=== PATIENT | male | born 1975 ===

== ENCOUNTER 2018-05-23 13:25 | Emergency (ER) | payer SELFPAY ==
[2018-05-23 14:06] VITALS: BP 127/79; PULSE 80; TEMP 99.4; O2SAT 98
--- NOTE | 2018-05-23 15:03 | C.PDOC ---
History Of Present Illness Pt c/o rash on b/l forearms. He states that he was in contact with poison [place]. Time Seen by Provider: 05/23/18 14:44 Chief Complaint (Nursing): Abnormal Skin Integrity History Per: Patient, Family Onset/Duration Of Symptoms: Days (4) Current Symptoms Are (Timing): Still Present Location Of Injury: Right: Forearm, Left: Forearm Quality Of Symptoms: Itching Severity: Moderate Additional History Per: Prior Records Past Medical History Reviewed: Historical Data, Nursing Documentation, Vital Signs Vital Signs: Last Vital Signs Temp 99.4 F 05/23/18 14:03 Pulse 80 05/23/18 14:03 Resp 16 05/23/18 14:03 BP 127/79 05/23/18 14:03 Pulse Ox 98 05/23/18 14:03 - Medical History PMH: No Chronic Diseases Family History: States: Unknown Family Hx - Social History Hx Alcohol Use: No Hx Substance Use: No - Immunization History Hx Tetanus Toxoid Vaccination: No Hx Influenza Vaccination: No Hx Pneumococcal Vaccination: No Review Of Systems Except As Marked, All Systems Reviewed And Found Negative. Constitutional: Negative for: Fever, Weakness Eyes: Negative for: Conjunctivae Inflammation, Eyelid Inflammation, Redness ENT: Negative for: Mouth Pain, Mouth Swelling, Throat Pain, Throat Swelling Respiratory: Negative for: Shortness of Breath Skin: Positive for: Rash Neurological: Negative for: Weakness, Numbness Physical Exam - Physical Exam Appears: Non-toxic, No Acute Distress Skin: Warm, Dry, Rash (on b/l forearms consistent with poison [place].) Head: Atraumatic, Normacephalic Eye(s): bilateral: Normal Inspection, PERRL, EOMI Oral Mucosa: Moist, No Drooling, No Trismus Neck: Normal ROM, Supple Extremity: Normal ROM, No Deformity Pulses: Left Radial: Normal, Right Radial: Normal Neurological/Psych: Oriented x3, Normal Motor, Normal Sensation ED Course And Treatment O2 Sat by Pulse Oximetry: 98 Pulse Ox Interpretation: Normal Disposition Counseled Patient/Family Regarding: Diagnosis, Need For Followup, Rx Given - Disposition Referrals: [facility] [Outside] Disposition: HOME/ ROUTINE Disposition Time: 15:03 Condition: STABLE Additional Instructions: Follow up in the clinic. Return to the ER if you develop fever, worsening of symptoms or if you have any other concerns. Prescriptions: predniSONE [predniSONE Tab] 2 tab PO DAILY #14 tab Instructions: Poison [place], Poison [place], Poison [place] (DC) Print Language: TURKISH - Clinical Impression Clinical Impression: Contact dermatitis due to poison keyla
[2018-05-23 15:12] VITALS: RESP 20
== END 2018-05-23 15:11 | disposition home or self-care (01) ==
LOC: C.ER 13:25
DX: L23.7 Allergic contact dermatitis due to plants, except food (principal)